=== PATIENT | male | born 1970 | race African-American/Black ===

== ENCOUNTER 2016-09-25 22:00 | Inpatient (IN) | payer OTHER ==
--- NOTE | ~2016-09-25 | PN ---
Unit #: [id number] #: [id number] Patient: EDGAR NUR [id number] [facility] [address] [place] [address] [id number] MR#: [id number] NAME: EDGAR NUR ROOM: 32 Age: 46 Sex: M Admission Date: 09/26/2016 : 1970 Attending Physician: Aron Valenzuela M.D. Admitting Physician: Aron Valenzuela M.D. Primary Care Physician: Generic Doctor Not In System [facility] PROGRESS NOTES DATE 09/27/2016 DISCUSSION Mr. Edgar Nur is a 46-year-old male seen on 09/27/2016. Patient continues to be guarded, paranoid but maintain safe behavior. No aggression. Patient denied any side effects from medication, isolative, guarded, flat affect. Complete review of system unremarkable. MENTAL STATUS EXAMINATION General appearance, patient dressed casually. Attention span, concentration fair. Oriented in place and person. Mood and affect labile. Speech monotone. Thought process concrete. Patient denied any thoughts of harming self or others but guarded. Recent and remote memory poor. Insight and judgement poor. DIAGNOSES 1. Psychosis NOS. 2. Mood disorder NOS. ASSESSMENT/PLAN Advised to continue with current medication and therapeutic protocol. If needed, consider further adjustment of medication. If needed, consider further adjustment of medication. Dictated by... Pratibha Negrete/lilli TD: 09/28/2016 19:49 JOB #: [id number] Unit #: [id number] #: [id number] Patient: EDGAR NUR PROGRESS NOTES Page 1 of 1 X Aron Valenzuela MD PROGRESS NOTE
--- NOTE | ~2016-09-25 | DS ---
Unit #: [id number] #: [id number] Patient: IAN ALLEN [id number] [facility] [address] [place] [address] [id number] MR#: [id number] NAME: IAN ALLEN ROOM: [facility] Age: 46 Sex: M Admission Date: 09/26/2016 : 1970 Discharge Date: 09/28/2016 Attending Physician: Aron Valenzuela M.D. Primary Care Physician: Generic Doctor Not In System DISCHARGE SUMMARY REASON FOR ADMISSION Paranoia. DIAGNOSTIC STUDIES LABORATORY RESULTS: Unremarkable. HOSPITAL COURSE The patient was admitted to inpatient unit on 09/26/2016 and discharged on 09/28/2016. The patient was treated on the inpatient unit with psychotherapy, psychoeducation, structured milieu. The patient was responsive to treatment, showed improvement. Subsequently, the patient was discharged with a plan to follow up in outpatient program. DISCHARGE MEDICATIONS Zyprexa 20 mg at bedtime for psychotic symptom and mood symptom. DISCHARGE DIAGNOSES Psychiatric: Schizophrenia, chronic, paranoid type, F20.0; alcohol use disorder, moderate, F10.20. Secondary diagnosis: Deferred. Medical diagnosis: None. Stressors: Psychosocial stressors. DISCHARGE INSTRUCTIONS The patient to follow up in outpatient clinic as per social services. CONDITION ON DISCHARGE The patient was pleasant and cooperative. Denied any auditory or visual hallucination, but somewhat guarded, paranoid. Denied any suicidal or homicidal ideation. PROGNOSIS Guarded. DIET AND ACTIVITY As tolerated. Dictated by... Aron Valenzuela M.D. Unit #: [id number] #: [id number] Patient: IAN ALLEN SZC/modl TD: 09/28/2016 20:15 JOB #: [id number] DISCHARGE SUMMARY Page 1 of 1 X Aron Valenzuela MD X DISCHARGE SUMMARY
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
--- NOTE | ~2016-09-25 | HP ---
Unit #: [id number] #: [id number] Patient: EDGAR ALLEN [id number] [place] [address] [id number] MR#: [id number] NAME: EDGAR ALLEN ROOM: 31 Age: 46 Sex: M Admission Date: 09/26/2016 : 1970 Attending Physician: Aron Valenzuela M.D. Admitting Physician: Aron Valenzuela M.D. Primary Care Physician: Generic Doctor Not In System HISTORY AND PHYSICAL HISTORY OF PRESENT ILLNESS Edgar is a 46 year old admitted to [address] [place] [address] with psychotic behavior. PAST MEDICAL HISTORY Nothing significant. PAST SURGICAL HISTORY Nothing reported. ALLERGIES Penicillin. SOCIAL HISTORY He does not smoke. Drinks alcohol on occasion. Denies illicit drug use. FAMILY HISTORY Medically noncontributory. REVIEW OF SYSTEMS CONSTITUTIONAL: No fever or chills. HEENT: Denies any sore throat, ear pain or runny nose. CARDIOVASCULAR: Denies chest pain, irregular heart rhythm or palpitations. CHEST: Denies shortness of breath or cough. No hemoptysis. GASTROINTESTINAL: Denies nausea, vomiting, diarrhea or chronic constipation. ENDOCRINE: Denies history of increased thirst or urination. No recent significant weight loss or gain. GENITOURINARY: Denies dysuria, frequency, or hematuria. SKIN: Denies any rashes. HEMATOLOGIC: Denies history of increased bleeding or bruising. MUSCULOSKELETAL: Denies any hot, swollen joints. No generalized muscle pain. NEUROLOGIC: Denies problems with vision or speech. No frequent, severe headaches. No numbness, tingling or weakness in any extremities. Denies loss of bladder or bowel control. CURRENT MEDICATIONS 1. Zyprexa 10 mg b.i.d. 2. Ibuprofen 800 mg q 6 hours p.r.n. 3. Milk of Magnesia p.r.n. 4. Maalox p.r.n. 5. Tylenol p.r.n. Unit #: [id number] #: [id number] Patient: EDGAR ALLEN PHYSICAL EXAMINATION GENERAL: Alert, well-nourished, in no apparent distress. VITAL SIGNS: Blood pressure 124/74, heart rate 78, respirations 16, temperature 98.6. WEIGHT: 172 pounds. HEIGHT: 5'8". SKIN: Warm and dry without rash or lesion. HEENT: Normocephalic. TMs not viewed. Oral and nasal passages clear. Conjunctivae clear. Pupils equal, round and reactive to light and accommodation. Extraocular movements intact. NECK: Supple without lymphadenopathy or thyromegaly. HEART: Regular rate and rhythm without murmur. LUNGS: Clear. ABDOMEN: Soft, nontender. : Not done. EXTREMITIES: No evidence of cyanosis, clubbing or edema. Moves all extremities without focal deficit. NEUROLOGICAL: Grossly within normal limits. Cranial Nerves: II: Visual ramirez are intact. III, IV AND : Extraocular movements are intact. Pupils are equal, round and reactive to light. V: Facial sensation is grossly normal. VII: Facial movements and expression are normal. VIII: Auditory acuity grossly intact. IX, X: Uvula is midline. Phonation is normal. XI: Patient shrugs shoulders and turns head normally. XII: Tongue protrudes in the midline. Sensory and Motor Function: Sensory and motor sensation is grossly normal. Motor: moves all extremities well. Coordination: Gait is normal. Deep Tendon Reflexes: Intact. IMPRESSION Psychiatric admission RECOMMENDATIONS PSYCHIATRIC: Per psychiatrist. MEDICAL: I see no contraindications to participating in facility's activities. MEDICAL PROGNOSIS Good. MEDICAL CONDITION Stable. Dictated by... Daisha Levine P.A.-C. for Pratibha Hurd/azeb TD: 09/27/2016 00:33 JOB #: [id number] Unit #: [id number] #: [id number] Patient: EDGAR ALLEN HISTORY AND PHYSICAL Page 1 of 1 X Daisha Levine HISTORY AND PHYSICAL
[2016-09-27 09:42] LABS: BASOPHIL% 1.1 % (0-2.5); EOSINOPHIL# 0.2 X10e3 (0-0.7); EOSINOPHIL% 4.2 % (0.0-7.0); HEMATOCRIT 43.7 % (38.0-50.0); HEMOGLOBIN 14.3 gm/dL (13.0-16.0); LYMPHOCYTE# 1.7 X10e3 (1.0-3.5); LYMPHOCYTE% 40.5 % (17.0-45.0); MEAN CELL VOLUME 92.4 FL (83-96); MEAN CORPUSCULAR HEMOGLOBIN 30.3 PG (28-34); MEAN CORPUSCULAR HGB CONC 32.8 g/dL (30-36); MEAN PLATELET VOLUME 8.2 FL (6.5-11.5); MONOCYTE# 0.5 X10e3 (0-1.0); MONOCYTE% 12.2 % (3.0-12.0); NEUTROPHIL# 1.8 X10e3 (1.5-7.1); PLATELET COUNT 225 X10e3 (140-420); RED BLOOD COUNT 4.73 X10e (3.90-5.60); RED CELL DISTRIBUTION WIDTH 14.1 % (11.0-15.5); WHITE BLOOD COUNT 4.2 X10e3 (4.0-10.5)
[2016-09-27 09:49] LABS: DIFF IND NO
[2016-09-27 10:26] LABS: ALBUMIN SERUM 3.7 g/dL (3.5-5.0); BILIRUBIN,TOTAL 0.7 mg/dL (0.2-2.0); BUN/CREATININE RATIO 12.22; CALCIUM SERUM 9.4 mg/dL (8.4-10.2); CREATININE SERUM 0.9 mg/dL (0.6-1.4); POTASSIUM 4.8 mmol/L (3.5-5.1); PROTEIN TOTAL SERUM 6.7 g/dL (6.0-8.3)
== END 2016-09-28 10:20 | disposition home or self-care (01) | DRG 885 ==
LOC: P1S 09-26 07:36 → POF 09-26 07:36 → P1S 09-26 10:44
PROVIDERS: Psychiatry & Neurology Psychiatry
DX: F20.0 Paranoid schizophrenia (principal); F39 Unspecified mood [affective] disorder; F10.20 Alcohol dependence, uncomplicated; Z88.0 Allergy status to penicillin; F29 Unspecified psychosis not due to a substance or known physiological condition
CPT/HCPCS: 80053; 85025